=== PATIENT | female | born 1970 | race Caucasian/White ===

== ENCOUNTER 2019-06-17 10:08 | Day surgery (SDC) | payer OTHER ==
[2019-06-14 13:53] LABS: BASOPHILS 0.4 % (0-2); EOSINOPHILS 0.9 % (0-7); HEMATOCRIT 41.2 % (36.0-48.0); HEMOGLOBIN 14.1 g/dL (12-16); IMMATURE GRANULOCYTES 0.3 % (0-5); LYMPHOCYTES 27.8 % (15-50); MCH 30.5 pg (26.0-34.0); MCHC 34.2 g/dL (31.0-37.0); MEAN PLATELET VOLUME 8.4 fL (7.4-10.4); MONOCYTES 13.5 % (2-11); NEUTROPHILS 57.1 % (40-80); PLATELET COUNT 348 10x3/uL (130-400); RBC 4.63 10x6/uL (4.00-5.40); RDW 13.6 % (11.5-14.5); WBC 7.6 10x3/uL (4.8-10.8)
[2019-06-14 13:58] LABS: CALC OSMOLALITY 277 mosm/kg (275-300); CALCIUM 9.1 mg/dL (8.5-10.1); CARBON DIOXIDE 27.1 mmol/L (21.0-32.0); CHLORIDE - SERUM 103 mmol/L (98-107); CREATININE - SERUM 0.6 mg/dL (0.6-1.3); GLUCOSE 90 mg/dL (74-106); SODIUM 139 mmol/L (136-145); UREA NITROGEN 13 mg/dL (7-18); eGFR NON AFRICAN AMERICAN > 90 mL/min (90-120)
[2019-06-14 13:59] LABS: POTASSIUM - SERUM 4.7 mmol/L (3.5-5.1)
[~2019-06-17] VITALS: Ht 165.1 cm; Wt 92.7 kg
--- NOTE | 2019-06-17 09:34 | NUR ---
0934 PT STATES ONLY CHANGE IN HEALTH HISTORY SINCE INTERVIEWED ON 06/14/19 IS THAT SHE HAD A VAGINAL ULTRASOUND & EXPERIENCED ITCHING AFTERWARDS & WONDERS IF SHE MIGHT HAVE A LATEX ALLERGY. NEW ALLERGY ADDED TO LIST. Diana JENKINS R.N.
[2019-06-17 10:02] VITALS: BP 110/62; BMI 33.3
[~2019-06-17 10:08] MED LIST: CENTRUM SILVER1 EAC3 PO; CLARITIN 10 MG10 MG PO; FLUTICASONE PRO16 GM NASAL; LINZESS145 MCG PO; TOPROL XL25 MG PO; XANAX0.5 MG PO
--- NOTE | 2019-06-17 19:43 | NUR ---
1939 TORODOL 30MG IV GIVEN E-MAR FOR PAIN 2/10 STATES NAUSEA IS SOME BETTER.
--- NOTE | 2019-06-17 20:00 | NUR ---
PT RECEIVED TO ROOM 1219 VIA STRETCHER FROM RECOVERY ROOM AND ASSISTED TO BED.
[2019-06-17 20:20] VITALS: BP 94/46
--- NOTE | 2019-06-17 20:20 | NUR ---
PT RESTING IN BED. ASSESSMENT COMPLETE PER FLOWSHEET. VS OBTAINED. PT VOMITED APPROX 25ML OF CLEAR EMESIS UPON ADMISSION TO UNIT. ABDOMEN SOFT. ABDOMINAL INCISION X2 AND INCISION TO UMBILICUS C/D/I WITH DERMABOND. NO VAGINAL BLEEDING NOTED. PT ASSISTED UP TO BATHROOM. VOIDED APPROX 25-50ML OF CONCENTRATED YELLOW URINE. PT VOMITED ANOTHER 25ML OF CLEAR EMESIS WHEN SHE GOT OUT OF BED. IV TO LEFT WRIST PATENT AND INFUSING LR. IV SITE WITHOUT REDNESS OR TENDERNESS. PT RATES HER PAIN AT 2/10. POC DISCUSSED INCLUDING PAIN MANAGEMENT, ANTIEMETICS, AND CL DIET. ENCOURAGED PT TO ONLY TAKE IN ICE CHIPS AT THIS TIME. QUESTIONS ANSWERED. INSTRUCTED PT TO NOTIFY NURSE WITH ANY PROBLEMS, NEEDS, OR CONCERNS. VERBALIZED UNDERSTANDING. BED IN LOW POSITION. SR UP X2. CALL LIGHT WITHIN PTS REACH.
--- NOTE | 2019-06-17 20:33 | NUR ---
REGLAN GIVEN SIVP FOR N/V. INSTRUCTED PT TO NOTIFY NURSE IF MEDICATION NOT EFFECTIVE OR WITH ANY OTHER PROBLEMS, NEEDS, OR CONCERNS. VERBALIZED UDNERSTANDING. ICE CHIPS PROVIDED.
[2019-06-17 21:55] VITALS: BP 98/46
--- NOTE | 2019-06-17 21:55 | NUR ---
PT RESTING IN BED. PT DENIES ANY C/O N/V AFTER RECEIVING DOSE OF REGLAN. NO REQUEST MADE. INSTRUCTED PT TO NOTIFY NURSE WITH ANY PROBLEMS, NEEDS, OR CONCERNS. VERBALIZED UNDERSTANDING. BED IN LOW POSITION. SR UP X2. CALL LIGHT WITHIN PTS REACH.
--- NOTE | 2019-06-17 23:20 | NUR ---
CALL PLACED TO DR. BEAVERS TO CLARIFY ORDER FOR SCHEDULED TORADOL AND TO ASK ABOUT IV FLUIDS. INFORMED MD THAT PT HAD N/V WHEN SHE FIRST CAME TO THE UNIT, BUT THAT SHE IS DOING BETTER NOW. ORDER RECEIVED TO GIVE TORADOL X2 MORE DOSES AND THEN START SCHEDULED MOTRIN. I ALSO ASKED ABOUT CONTINUING IV FLUIDS SINCE SHE HAD BEEN SICK. ORDER RECEIVED FOR LR @ 125ML/HR.
[2019-06-18 00:10] VITALS: BP 94/43
--- NOTE | 2019-06-18 00:10 | NUR ---
PT RESTING IN BED. S/O AT BEDSIDE. PT REPORTS THAT SHE HAS NOT HAD ANY MORE N/V. I INFORMED HER THAT SHE WILL RECEIVE TORADOL X2 MORE DOSES AND THEN START ON SCHEDULED MOTRIN. I ALSO INFORMED HER THAT SINCE SHE WAS SICK EARLIER, DR. BEAVERS ORDERED TO CONTINUE HER IV FLUIDS. PT REPORTS THAT SHE DRANK SOME OF HER [place] SOFT DRINK AND WAS ABLE TO TOLERATE IT. PT ASSISTED UP TO BATHROOM AND VOIDED 125ML OF CONCENTRATED YELLOW URINE. PT ASSISTED BACK TO BED. NO REQUEST MADE. INSTRUCTED PT TO NOTIFY NURSE WITH ANY PROBLEMS, NEEDS, OR CONCERNS. VERBALIZED UNDERSTANDING. BED IN LOW POSITION. SR UP X2. CALL LIGHT WITHIN PTS REACH.
--- NOTE | 2019-06-18 01:20 | NUR ---
PT RESTING IN BED WITH EYES CLOSED. NO DISTRESS NOTED. BED IN LOW POSITION. SR UP X2. CALL LIGHT WITHIN PTS REACH.
--- NOTE | 2019-06-18 02:08 | NUR ---
PT RESTING IN BED WITH EYES CLOSED. NO DISTRESS NOTED. S/O RESTING IN CHAIR. BED IN LOW POSITION. SR UP X2. CALL LIGHT WITHIN PTS REACH.
[2019-06-18 04:00] VITALS: BP 103/47
--- NOTE | 2019-06-18 04:00 | NUR ---
PT RESTING IN BED. PT ASSISTED TO BATHROOM AND THEN SHE SAT UP ON SIDE OF BED BEFORE LYING BACK DOWN. TOLERATED WELL. PT DENIES ANY C/O N/V OR PAIN. NO REQUEST MADE. INSTRUCTED PT TO NOTIFY NURSE WITH ANY PROBLEMS, NEEDS, OR CONCERNS. VERBALIZED UNDERSTANDING. BED IN LOW POSITION. SR UP X2. CALL LIGHT WITHIN PTS REACH.
[2019-06-18 04:19] VITALS: BP 103/47; Ht 165.1 cm; Wt 92.7 kg
[2019-06-18 04:30] VITALS: BP 103/47
--- NOTE | 2019-06-18 06:20 | NUR ---
PT RESTING IN BED WITH EYES CLOSED. NO DISTRESS NOTED. S/O AT BEDSIDE RESTING IN CHAIR. BED IN LOW POSITION. SR UP X2. CALL LIGHT WITHIN PTS REACH.
--- NOTE | 2019-06-18 06:37 | NUR ---
PT RESTING IN BED. DENIES ANY COMPLAINTS OR NEEDS. SCHEDULED TORADOL GIVEN SIVP. INSTRUCTED PT TO NOTIFY NURSE WITH ANY PROBLEMS, NEEDS, OR CONCERNS. VERBALIZED UNDERSTANDING. BED IN LOW POSITION. SR UP X2. CALL LIGHT WITHIN PTS REACH.
--- NOTE | 2019-06-18 07:15 | NUR ---
REPORT RECEIVED FROM Lillian DOLL RN. PT. RESTING IN BED WITH S/O AT BEDSIDE. NO COMPLAINTS AT THIS TIME.
[2019-06-18 08:00] VITALS: BP 99/64
--- NOTE | 2019-06-18 08:10 | NUR ---
ASSESSMENT COMPLETED. SEE FLOWSHEET. EATING BREAKFAST. NO COMPLAINTS OF NAUSEA/VOMITING. NO DIZZINESS WHEN AMBULATING IN ROOM. NO C/O PAIN AT THIS TIME.
--- NOTE | 2019-06-18 09:15 | NUR ---
IV D/C'D. CATHETER INTACT. PRESSURE APPLIED. NO BLEEDING NOTED. BANDAGE APPLIED TO INSERTION SITE.
[2019-06-18] MEDS ORDERED: PERCOCET 7.5/321 TAB PO (09:40)
--- NOTE | 2019-06-18 09:40 | NUR ---
REVIEWED DISCHARGE INSTRUCTIONS WITH PATIENT. STATES UNDERSTANDING. PRESCRIPTIONS GIVEN.
--- NOTE | 2019-06-18 09:57 | NUR ---
PT D/C HOME VIA WHEELCHAIR TO PRIVATE VEHICLE ACCOMPANIED BY NURSING STAFF.
--- NOTE | 2019-06-21 10:20 | OP ---
PATIENT NAME: EL DEL VALLE MEDICAL RECORD: [id number] :66 LOCATION:D.[facility] ADMISSION DATE: SURGEON: ZEV GARCIA MD DATE OF OPERATION: 06/17/2019 PREOPERATIVE DIAGNOSIS: Pelvic mass. POSTOPERATIVE DIAGNOSIS: Pelvic mass. PROCEDURES PERFORMED: 1. Diagnostic laparoscopy. 2. Bilateral salpingo-oophorectomy. SURGEON: Zev Garcia MD COKE STILL CLEANER: Dr. Beaulieu ANESTHESIA: General. FINDINGS: Bilateral ovarian cyst. The right ovary is adhesed to the sidewall. What was visualized of the abdominal anatomy is unremarkable. The cuff is visualized and also appears unremarkable. SPECIMENS REMOVED: Bilateral tubes and ovaries. SPECIMEN DISPOSITION: All specimens to pathology. ESTIMATED BLOOD LOSS: Minimal. FLUIDS: 1400 cc of lactated Ringer's. URINE OUTPUT: Quantity sufficient void prior to this procedure. COMPLICATIONS: None. DRAINS: None. INDICATIONS: The patient is a 48-year-old female with known history of pelvic mass. There is suspect that it is a dermoid. The patient also has a history of symptomatic ovarian cysts. The patient has consented for bilateral salpingo-oophorectomy and any indicated procedure. DESCRIPTION OF PROCEDURE: After informed consent was assured, the patient was taken to the operating room where anesthetic was obtained without difficulty. The patient was now prepped and draped in the usual sterile fashion. An incision was made at Sanchez's point after an OG tube has been placed. A trocar was inserted. Pneumoperitoneum was developed and the patient was placed in Trendelenburg position. A 12-mm port was placed in the left lower quadrant and a 5-mm port in the right lower quadrant. The left tube and ovary were now elevated and from the left lower quadrant port, a Thunderbeat coagulation cutter was used to compress, coagulate, and separate these tissues and free the ovary and tube from its connection to the adnexa. This was repeated on the contralateral side. Dissection began laterally at the IP and was taken around the ovary and across the adhesions to the sidewall. Once the ovary is freed, both right and left ovary were placed in the cul-de-sac. Inspection of the OPERATIVE REPORT [id number] EL DEL VALLE operative field reveals adequate hemostasis. Ureters were inspected and found to be well out of the operative field. The Endobags were removed along with both ovaries. The incision has been extended for this at the left lower quadrant. The David-Vin was now used to close the fascial incision. The pneumoperitoneum is now released as the accessory ports were removed. The primary ports were now removed and all sites closed with subcuticular stitch and Dermabond applied. Sponge, lap, and needle counts were correct times 2. TRANSINT:[id number] Voice Confirmation ID: [id number] DOCUMENT ID: [id number] ZEV GARCIA MD at 1020 CC: [id number] DICTATION DATE: 06/17/19 1435 BLOW MOLD MACHINE OPERATOR: 06/18/19 0008 [facility] 06/18/19 [facility] [address] [place] [address]
== END 2019-06-18 09:59 | disposition home or self-care (01) ==
LOC: OBSVTIME → D.OPS 10:08 → D.WS 19:31 → D.OPS 19:31 → OBSVTIME 19:40 → D.WS 06-18 09:59 → D.OPS 06-18 09:59
PROVIDERS: ATTEND Obstetrics & Gynecology
DX: N83.202 Unspecified ovarian cyst, left side (principal); R19.00 Intra-abdominal and pelvic swelling, mass and lump, unspecified site